=== PATIENT | male | born 1980 | race Caucasian/White ===

== ENCOUNTER 2024-06-22 14:19 | Outpatient (CLI) | payer OTHER, SELFPAY ==
--- NOTE | 2024-06-22 14:26 | XR_ITS ---
WS: [id number] Exam: XR chest 2V* [id number] Date/Time of Exam: 06/22/2024 2:27 PM Reason For Exam: COPD No priors. The lungs are fully inflated and clear. Heart size top limits normal. The mediastinum is normal in co ntour. No pleural effusions. Bony structures are intact. Fusion hardware noted in the lower cervical and upper T-spine. XR/XR chest 2V* [id number] IMPRESSION: 1. No acute cardiopulmonary finding.
== END 2024-06-22 14:20 | disposition home or self-care (01) ==
LOC: RAD 14:23
PROVIDERS: PCP Nurse Practitioner; Visit Provider Nurse Practitioner
DX: J44.1 Chronic obstructive pulmonary disease with (acute) exacerbation (principal); M43.22 Fusion of spine, cervical region
CPT/HCPCS: 71046

== ENCOUNTER 2024-08-04 08:26 | Outpatient (CLI) | payer OTHER, SELFPAY ==
[2024-08-04 09:44] LABS: Hepatitis A Antibody IgM Non-Reactive (Nonreactive); Hepatitis B Core IgM Non-Reactive (Nonreactive); Hepatitis B Surface Antigen Non-Reactive (Nonreactive); Hepatitis C Virus Antibody Reactive (Nonreactive)
[2024-08-04 10:14] LABS: HIV 1 & 2 Antibody Non-Reactive (Non-Reactiv); HIV 1 & 2 Antigen Non-Reactive (Non-Reactiv)
== END 2024-08-04 08:27 | disposition home or self-care (01) ==
LOC: LAB 08:30
PROVIDERS: PCP Nurse Practitioner; Visit Provider Internal Medicine
DX: B18.2 Chronic viral hepatitis C (principal)
CPT/HCPCS: 36415; 80074; 87522; 87806; 87902

== ENCOUNTER 2025-02-24 09:58 | Emergency (ER) | payer OTHER, SELFPAY ==
--- NOTE | 2025-02-24 10:01 | XRR_ITS ---
PROCEDURE INFORMATION: Exam: XR Chest Exam date and time: 02/24/2025 10:12 AM Age: 44 years old Clinical indication: Pain; Angina pectoris; Additional info: Cp TECHNIQUE: Imaging protocol: Radiologic exam of the chest. Views: 1 view. COMPARISON: CR XR chest 2V* [id number] 06/22/2024 2:30 PM FINDINGS: Lungs: Unremarkable. No consolidation. Pleural spaces: Unremarkable. No pleural effusion. No pneumothorax. Heart/Mediastinum: Unremarkable. No cardiomegaly. Bones/joints: Unremarkable. XR/XR chest 1V portable [id number] IMPRESSION: No acute findings.
--- NOTE | 2025-02-24 10:01 | ECG_ITS ---
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
[2025-02-24 10:05] VITALS: BP 149/113; PULSE 77; RESP 16; TEMP 36.7; O2SAT 98; BMI 26.7
--- NOTE | 2025-02-24 10:15 | ED_ITS ---
HPI - Weakness 2 General: Chief complaint: Weakness Stated complaint: urgetn care sent, cp Time Seen by Provider: 02/24/25 10:01 Source: patient Mode of arrival: ambulatory Limitations: no limitations History of Present Illness: 44-year-old male has a history of alcoho lism states he drinks half a pint at night also history of COPD. 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 He states that since being inside he does feel improved he states he still does have a slight tremor. No history of alcohol withdrawals in the past. He denies any chest pain. Denies any abdominal pain Associated symptoms: Reports nausea and vomiting; Denies chest pain, chills, dysuria, fever(s) or headache(s) Related Data Home Medications ?Medication ?Instructions ?Recorded ?Confirmed albuterol sulfate 90 mcg/actuation inhalation 08/29/24 02/24/25 aerosol inhaler budesonide 160 mcg-glycopyr 9 inh inhalation 08/29/24 02/24/25 mcg-formot 4.8 mcg/actuation HFA inhaler (Breztri Aerosphere) losartan 25 mg tablet mg PO 08/29/24 02/24/25 Previous Rx's ?Medication ?Instructions ?Recorded ondansetron 4 mg disintegrating 4 mg PO Q6H PRN nausea and 02/24/25 tablet vomiting #14 tabs Allergies Allergy/AdvReac Type Severity Reaction Status Date / Time No Known Allergies Allergy Verified 02/24/25 10:05 Review of Systems 2 Const: Denies: fever(s), chills, body aches or change in appetite ENMT: Denies: throat pain or dental pain Card: Reports: lightheadedness; Denies: chest pain Resp: Denies: dyspnea GI: Reports: nausea and vomiting; Denies: abdominal pain or diarrhea : Denies: dysuria Musc: Denies: neck pain or back pain Skin/Breast: Denies: rash Neuro: Denies: headache(s) PFSH ED 2 PFSH: Medical History Postoperative nausea and vomiting Diaphoresis Social History Smoking and tobacco/nicotine status: current every day tobacco/nicotine user Physical Exam 2 Const: COMMON NORMALS: no acute distress, patient oriented x3 and healthy appearing HENMT: COMMON NORMALS: normocephalic and atraumatic HEAD & SCALP: n ormocephalic and atraumatic Eye: COMMON NORMALS: conjunctivae normal CONJUNCTIVA: Yes conjunctivae normal Neck/C-Spine: COMMON NORMALS: full ROM and supple Chest: COMMONS NORMALS: normal inspection of the chest and normal palpation of entire chest wall Resp: COMMON NORMALS: normal respiratory effort, No retractions, No use of accessory muscles and clear to auscultation bilaterally AUSCULTATION: clear to auscultation bilaterally Cardio: COMMON NORMALS: regular rate, regular rhythm and No murmurs present (Cardio) RATE: regular rate RHYTHM: regular rhythm GI: COMMON NORMALS: Normal to inspection, nondistended, normoactive bowel sounds present, Soft to palpation, non-tender and no masses PALPATION: Yes Soft to palpation Extremity: COMMON NORMALS: normal to inspection and full ROM Neuro: COMMON NORMALS: patient oriented x3, moves all extremities and no focal motor deficits Psych: COMMON NORMALS: mental status grossly normal, Normal thought process present and cooperative THOUGHT PROCESS: Normal thought process present Skin: COMMON NORMALS: no rashes or lesions noted and no wounds GENERAL SKIN EXAM: no rashes or lesions noted Course 2 Vital Signs: Vital signs: Vital Signs Temperature 98.1 F 02/24/25 10:05 Pulse Rate 84 02/24/25 12:29 Respiratory Rate 16 02/24/25 12:29 Blood Pressure 161/99 02/24/25 12:29 Pulse Oximetry 96 02/24/25 12:29 Oxygen Delivery Me thod Room Air 02/24/25 12:29 MDM - Weakness Medical Decision Making Patient presents here with vomiting also near syncopal event he feels much improved here likely having some slight withdrawals from alcohol as well he feels better after Ativan he stable for discharge we will prescribe him Zofran he is follow-up his PCP is no signs of pulm embolism no signs of acute coronary syndrome. Medical Records I reviewed the patient's medical records. Lab Data I reviewed the patient's lab results. 02/24/25 10:16 02/24/25 10:16 Radiology Impressions Chest X-Ray 02/24/25 10:01 IMPRESSION: No acute findings. Laboratory Results WBC 11.57 10^3/uL (3.29-11.43) H 02/24/25 10:16 RBC 4.92 10^6/uL (3.85-5.65) 02/24/25 10:16 Hgb 16.80 g/dL (11.27-16.99) 02/24/25 10:16 Hct 46.7 % (37-53) 02/24/25 10:16 MCV 94.9 fl (82-101) 02/24/25 10:16 MCH 34.1 pg (27-33) H 02/24/25 10:16 MCHC 36.0 g/dL (30-55) 02/24/25 10:16 RDW 13.8 % (12.1-15.1) 02/24/25 10:16 Plt Count 284 10^3/cmm (157-399) 02/24/25 10:16 MPV 9.0 fL (7.4-10.4) 02/24/25 10:16 Neut % (Auto) 73.4 % 02/24/25 10:16 Lymph % (Auto) 16.9 % 02/24/25 10:16 [place] % (Auto) 9.0 % 02/24/25 10:16 Eos % (Auto) 0.0 % 02/24/25 10:16 Baso % (Auto) 0.4 % 02/24/25 10:16 Neut # (Auto) 8.49 10^3/uL (1.8-7.7) H 02/24/25 10:16 Lymph # (Auto) 2.0 10^3/uL (0.8-4.8) 02/24/25 10:16 [place] # (Auto) 1.0 10^3/uL (0.2-0.9) H 02/24/25 10:16 Eos # (Auto) 0.0 10^3/uL (0.0-0.8) 02/24/25 10:16 Baso # (Auto) 0.1 10^3/uL (0.0-0.1) 02/24/25 10:16 Nucleated RBC % (auto) 0 % 02/24/25 10:16 Nucleated RBCs # 0.0 /100WBC 02/24/25 10:16 Sodium 139 mmol/L (136-145) 02/24/25 10:16 Potassium 3.5 mmol/L (3.5-5.1) 02/24/25 10:16 Chloride 98 mmol/L (98-107) 02/24/25 10:16 Carbon Dioxide 23 mmol/L (22-29) 02/24/25 10:16 Anion Gap 21.5 (5-19) H 02/24/25 10:16 BUN 9 mg/dL (6-20) 02/24/25 10:16 Creatinine 0.9 mg/dL (0.7-1.2) 02/24/25 10:16 GFR Calculation 92.1 mL/min (90-130) 02/24/25 10:16 Glucose 105 mg/dL (65-115) 02/24/25 10:16 Calculated Osmolality 287 mOsm/kg (285-295) 02/24/25 10:16 Calcium 9.7 mg/dL (8.5-10.5) 02/24/25 10:16 Total Bilirubin 0.6 mg/dL (0.15-1.2) 02/24/25 10:16 AST 68 U/L (0-40) H 02/24/25 10:16 ALT 56 U/L (0-41) H 02/24/25 10:16 Alkaline Phosphatase 135 U/L (40-130) H 02/24/25 10:16 Troponin T Baseline 15 ng/L (0-15) 02/24/25 10:16 Troponin T 120 Minute 14.19 ng/L (0-15) 02/24/25 11:43 Delta Troponin T -0.81 ABS# (0-10) L 02/24/25 11:43 Total Protein 8.7 g/dL (6.6-8.7) 02/24/25 10:16 Albumin 5.1 g/dL (3.5-5.2) 02/24/25 10:16 Globulin 3.6 g/dL (1.3-4.6) 02/24/25 10:16 Lipase 22 U/L (13-60) 02/24/25 10:16 All radiology interpretation(s) finalized by discharge EKG Data EKG 1: I personally reviewed and interpreted this EKG as follows: EKG interpretation date: 02/24/25 EKG interpretation time: 10:07 Interpretation: nsr hr [address] elevation qrs 93 qtc 389 Discharge Plan Discharge Patient Disposition: Home Clinical Impression: Vomiting, Near syncope Condition: Stable Prescriptions: New ondansetron 4 mg tablet,disintegrating 4 mg PO Q6H PRN (Reason: nausea and vomiting) Qty: 14 0RF No Action losartan 25 mg tablet PO Breztri Aerosphere 160-9-4.8 mcg/actuation HFA aerosol inhaler inhalation albuterol sulfate 90 mcg/actuation HFA aerosol inhaler inhalation Discharge Orders: Discharge ED (Routine); Ordered 02/24/[address] Referrals: Dodie Yi FNP [Primary Care Provider, [facility]] - 4-7 days Discharge Diet: Advance as tolerated Discharge Activity: Resume usual activity Patient Instructions: Acute Nausea and Vomiting (ED), Near Syncope (ED) Print Language: Sinhala Coding Level of Care Code ED Dry Cleaning Checker for Kyle Knowles
[2025-02-24 10:25] LABS: Hematocrit 46.7 % (37-53); Hemoglobin 16.80 g/dL (11.27-16.99); Mean Corpuscular HGB Conc 36.0 g/dL (30-55); Mean Corpuscular Hemoglobin 34.1 pg (27-33); Mean Corpuscular Volume 94.9 fl (82-101); Nucleated Red Blood Cells % 0 %; Platelet Count 284 10^3/cmm (157-399); Red Blood Count 4.92 10^6/uL (3.85-5.65); White Blood Count 11.57 10^3/uL (3.29-11.43)
[2025-02-24] MEDS: ondansetron 2 mg/ML SDV 2 mL 4 MG IVP (10:25)
[2025-02-24] MEDS: LORazepam 1 MG/0.5 ML injection 0.5 MG IVP (10:25)
[2025-02-24 10:44] LABS: Alanine Aminotransferase 56 U/L (0-41); Albumin Level 5.1 g/dL (3.5-5.2); Alkaline Phosphatase 135 U/L (40-130); Anion Gap 21.5 (5-19); Aspartate Amino Transferase 68 U/L (0-40); Blood Urea Nitrogen 9 mg/dL (6-20); Calcium 9.7 mg/dL (8.5-10.5); Carbon Dioxide 23 mmol/L (22-29); Chloride 98 mmol/L (98-107); Creatinine Clr Calc Pharmacy 119.7770; Globulin 3.6 g/dL (1.3-4.6); Glucose 105 mg/dL (65-115); Lipase 22 U/L (13-60); Osmolality Calculated 287 mOsm/kg (285-295); Potassium 3.5 mmol/L (3.5-5.1); Sodium 139 mmol/L (136-145); Total Protein 8.7 g/dL (6.6-8.7)
[2025-02-24 10:45] LABS: Troponin(5th) Baseline 15 ng/L (0-15)
[2025-02-24 11:15] VITALS: BP 160/101; PULSE 102; RESP 18; O2SAT 97
[2025-02-24] MEDS: LORazepam 1 MG/0.5 ML injection IVP (11:40)
[2025-02-24 11:43] VITALS: BP 161/99; PULSE 88; RESP 18; O2SAT 97
--- NOTE | 2025-02-24 12:01 | ECG_ITS ---
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
[2025-02-24 12:21] LABS: Troponin 5 2HR 14.19 ng/L (0-15)
[2025-02-24 12:25] LABS: Troponin 5 2HR Delta -0.81 ABS# (0-10)
[2025-02-24 12:29] VITALS: BP 161/99; PULSE 84; RESP 16; O2SAT 96
[2025-02-24 12:35] VITALS: BP 161/99; PULSE 94; RESP 16; O2SAT 96
== END 2025-02-24 12:45 | disposition home or self-care (01) ==
PROVIDERS: Emergency Provider Emergency Medicine; PCP Nurse Practitioner
DX: R11.10 Vomiting, unspecified (principal); R55 Syncope and collapse; Z72.0 Tobacco use
CPT/HCPCS: 36415; 71045; 80053; 83690; 84484; 85025; 93005; 96361; 96374; 96375; 96376; 99285; J2060; J2405; J7030